=== PATIENT | female | born 1975 | race Caucasian/White ===

== ENCOUNTER 2016-11-23 19:07 | Emergency (ER) | payer BC, OTHER ==
[~2016-11-23] VITALS: Ht 157.5 cm; Wt 62.6 kg
[2016-11-23] MEDS ORDERED: ONDANSETRON 4 MG/2 ML VIAL IV ONE (19:30)
[2016-11-23] MEDS ORDERED: IV NORMAL SALINE 1000 ML BAG IV ONE (19:30)
[2016-11-23 19:43] LABS: BASOPHILS # (AUTO) 0.1 K/uL (0.0-8.0); BASOPHILS % (AUTO) 0.9 % (0.0-2.0); EOSINOPHILS # (AUTO) 0.1 K/uL (0.0-0.7); HEMATOCRIT 41.7 % (37-47); HEMOGLOBIN 14.2 G/DL (12.0-16.0); LYMPHOCYTES # (AUTO) 1.9 K/UL (0.8-4.8); LYMPHOCYTES % (AUTO) 24.2 % (20.5-51.5); MEAN CORPUSCULAR HEMOGLOBIN 30.6 UUG (27.0-31.0); MEAN CORPUSCULAR HGB CONC 34 g/dL (32.0-37.0); MEAN CORPUSCULAR VOLUME 90.2 FL (81.0-99.0); MONOCYTES # (AUTO) 0.5 K/UL (0.1-1.30); MONOCYTES % (AUTO) 6.4 % (0.0-11.0); NEUTROPHILS # (AUTO) 5.2 K/UL (1.8-8.9); NEUTROPHILS % (AUTO) 67.5 % (38.5-71.5); PLATELET COUNT (AUTO) 172 K/UL (150-450); RED BLOOD CELL COUNT(AUTO) 4.63 MIL/UL (4.2-5.4); WHITE BLOOD COUNT (AUTO) 7.8 K/UL (4.0-11.2)
[2016-11-23] MEDS ORDERED: ONDANSETRON 4 MG/2 ML VIAL ONE (19:48)
[2016-11-23 19:51] LABS: CREATININE 0.6 mg/dL (0.6-1.3); POTASSIUM 3.9 mmol/L (3.5-5.1)
[2016-11-23 19:57] LABS: BILIRUBIN,DIRECT 0.1 mg/dL (0.0-0.2); BILIRUBIN,TOTAL 0.3 mg/dL (0.2-1.0); TOTAL PROTEIN, SERUM 7.7 g/dL (6.4-8.2)
--- NOTE | 2016-11-23 20:30 | NUR ---
Patient discharged to home in stable conditon. Written and verbal after care instructions given. Patient verbalizes understanding of instructions.
[2016-11-23 20:35] VITALS: BP 120/80
== END 2016-11-23 20:35 | disposition home or self-care (01) ==
LOC: ER 19:07
DX: R19.7 Diarrhea, unspecified (principal); R11.2 Nausea with vomiting, unspecified; M79.606 Pain in leg, unspecified
CPT/HCPCS: 36415; 83690; 84703; 85025; A4663; J2405; J7030

== ENCOUNTER 2017-07-03 10:53 | Emergency (ER) | payer BC, OTHER ==
[~2017-07-03] VITALS: Ht 157.5 cm; Wt 63.5 kg
--- NOTE | 2017-07-03 12:58 | NUR ---
PATIENT WAS SEEN BY MD. ANTOINE AND FOLLW UP INSTRUCTIONS GIVEN AND EXPLAINED TO PATIENT WHO STATES HE UNDERSTANDS ALL INSTRUCTIONS.
== END 2017-07-03 13:00 | disposition home or self-care (01) ==
LOC: ER 10:53
DX: S93.602A Unspecified sprain of left foot, initial encounter (principal); X58.XXXA Exposure to other specified factors, initial encounter; Y93.89 Activity, other specified; Y92.89 Other specified places as the place of occurrence of the external cause; Y99.8 Other external cause status
CPT/HCPCS: 73620; A4663

== ENCOUNTER 2018-02-22 07:38 | Inpatient (IN) | payer BC, OTHER ==
[~2018-02-22] VITALS: Ht 157.5 cm; Wt 63.2 kg
[2018-02-22] MEDS ORDERED: PANT40TA2 PO (07:45)
--- NOTE | 2018-02-22 08:44 | NUR ---
OPAL NOVOA TALKING TO DR. CAMILO FOR GI CONSULT
[2018-02-22 09:14] LABS: BASOPHILS # (AUTO) 0.1 K/uL (0.0-8.0); EOSINOPHILS % (AUTO) 0.4 % (0.0-7.0); HEMATOCRIT 41.7 % (31.2-41.9); HEMOGLOBIN 14.3 g/dL (10.9-14.3); LYMPHOCYTES # (AUTO) 1.3 K/uL (20.0-40.0); LYMPHOCYTES % (AUTO) 20.3 % (20.5-51.5); MEAN CORPUSCULAR HEMOGLOBIN 32.1 uug (24.7-32.8); MEAN CORPUSCULAR HGB CONC 34 g/dL (32.3-35.6); MEAN CORPUSCULAR VOLUME 93.7 fL (75.5-95.3); MONOCYTES # (AUTO) 0.6 K/uL (2.0-10.0); MONOCYTES % (AUTO) 8.9 % (0.0-11.0); NEUTROPHILS # (AUTO) 4.4 K/uL (1.8-8.9); NEUTROPHILS % (AUTO) 69.4 % (38.5-71.5); PLATELET COUNT (AUTO) 203 K/uL (179-408); RED BLOOD CELL COUNT(AUTO) 4.45 MIL/uL (3.63-4.92); WHITE BLOOD COUNT (AUTO) 6.3 K/uL (3.8-11.8)
[2018-02-22 09:19] LABS: CREATININE 0.7 mg/dL (0.6-1.3); POTASSIUM 3.6 mmol/L (3.5-5.1)
[2018-02-22 09:25] LABS: BILIRUBIN,DIRECT 0.1 mg/dL (0.0-0.2); BILIRUBIN,TOTAL 0.4 mg/dL (0.2-1.0); TOTAL PROTEIN, SERUM 7.7 g/dL (6.4-8.2)
[2018-02-22] MEDS ORDERED: IV NORMAL SALINE 1000 ML BAG IV ONE (09:45)
--- NOTE | 2018-02-22 10:51 | NUR ---
dr. rios at bedside.
--- NOTE | 2018-02-22 11:09 | NUR ---
pt transfered to floor in stable condition.
--- NOTE | 2018-02-22 11:10 | NUR ---
RECEIVED PATIENT FOR ADMISSION 42 YEARS OLD BY W/CHAIR WITH DX OF ESOPHAGEAL FOREIGN BODY PLACED INTO BED FIXED AND MADE COMFORTABLE PATIENT ORIENTED TO ROOM AND FACILITY PROTOCOL HAS A HEPLOCK IN HER LEFT AC PATENT FLUSHED PER PROTOCOL.PATIENT IS NPO INSTRUCTED PER THE ED NURSE DR DIAZ STATED TO KEEP PATIENT NPO BECAUSE HE IS PLANNING TO DO EGD ON THIS PATIENT TODAY
[2018-02-22] MEDS ORDERED: IV NS 1000 ML 1,000 ML IV PRN (11:31)
[2018-02-22] MEDS ORDERED: Z GUARD REMEDY PASTE 57 GM TUBE TOP PRN (11:45)
[2018-02-22] MEDS ORDERED: ZOLPIDEM 5 MG TABLET PO PRN (11:45)
[2018-02-22] MEDS ORDERED: ONDANSETRON 4 MG/2 ML VIAL IV PRN (11:45)
[2018-02-22] MEDS ORDERED: PANTOPRAZOLE SODIUM 40 MG VIAL IV SCH (11:45)
[2018-02-22] MEDS ORDERED: ACETAMINOPHEN 325 MG TABLET PO PRN (11:45)
[2018-02-22 12:03] VITALS: BP 120/75
[2018-02-22 12:36] LABS: *BILIRUBIN,URIN NEGATIVE (NEGATIVE); *BLOOD, URINE Trace-intact (NEGATIVE); *CLARITY,URINE CLEAR (CLEAR); *COLOR,URINE YELLOW (YELLOW); *KETONES,URINE 2+ (NEGATIVE); *PROTEIN,URINE NEGATIVE (NEGATIVE); *UROBILINOGEN,URINE 0.2 E.U./dl (NORMAL); LEUKOCYTE ESTERASE ,URINE NEGATIVE (NEGATIVE); NITRITE, URINE NEGATIVE (NEGATIVE); PH,URINE 8.5 (5.0-8.0); UGLUCOSE NEGATIVE (NEGATIVE)
--- NOTE | 2018-02-22 12:45 | NUR ---
PER GI LAB PATIENT IS SCHEDULED FOR EGD TODAY HYPERTRICHOLOGIST ABOUT 1430 PATIENT AND HER NOTIFIED.
[2018-02-22 12:52] LABS: WBC,URINE 0-3 /HPF (0-3)
[2018-02-22 12:53] LABS: BACTERIA,URINE NONE SEEN /HPF (NONE SEEN)
[2018-02-22 12:54] LABS: MUCUS,URINE FEW /LPF (0-FEW); SQUAMOUS EPITHELIAL CELL,UR MODERATE /HPF (NONE SEEN); YEAST,URINE FEW /HPF (NONE SEEN)
--- NOTE | 2018-02-22 14:45 | NUR ---
PATIENT PICKED UP BY BED TO THE GI LAB FOR ENDOSCOPY ORDERED AWAKE ALERT ORIENTED VERBALLY RESPONSIVE DENIES PAIN OR DISCOMFORTS AT THIS TIME REMAIN NPO ORDERED.
[2018-02-22 15:00] VITALS: BP 131/88
--- NOTE | 2018-02-22 17:30 | NUR ---
PATIENT RETURNED FROM GI LAB BY BED AWAKE ALERT ORIENTED HAPPY THAT HER ENDOSCOPY WAS OKAY ABLE TO DRINK LIQUIDS STATED THAT SHE DOES NOT FEEL THE TIGHTNESS ANYMORE ABLE TO DRINK AND KEEP LIQUIDS EAGER TO GO HOME TODAY
--- NOTE | 2018-02-22 18:00 | NUR ---
DR AVERY HERE AND SEEN PATIENT WITH ORDER TO DISCHARGE HER HOME TODAY AND NOTED
[2018-02-22] MEDS ORDERED: LIDOCAINE HCL 2% 5 ML JELLY MC ONE (18:19)
[2018-02-22] MEDS ORDERED: IRR STERIL WATER FOR IRR 1000 ML BOTTLE IR ONE (18:19)
[2018-02-22] MEDS ORDERED: IV LACTATED RINGERS SOLUTION 1,000 ML BAG IV ONE (18:19)
[2018-02-22] MEDS ORDERED: PROPOFOL 200 MG/20 ML BOTTLE IV ONE (18:19)
--- NOTE | 2018-02-22 18:20 | NUR ---
PATIENT DISCHARGED PICKED UP BY HER KOURTNEY IN SATISFACTORY CONDITION WITH DISCHARGE INSTRUCTIONS AND PATIENT INSTRUCTED TO ADVANCE HER DIET FROM CLEAR LIQUIDS TO REGULAR TOLERATED AND TO CALL [facility] TO FOLLOW UP ON THE BIOPSY RESULTS AND SHE EXPRESSED UNDERSTANDING.
== END 2018-02-22 18:20 | disposition home or self-care (01) | DRG 392 ==
LOC: ER 07:38 → MED 10:54
PROVIDERS: ADMIT Internal Medicine; ATTEND Internal Medicine
PROC: 0DB58ZX Excision of Esophagus, Via Natural or Artificial Opening Endoscopic, Diagnostic (ICD-10-PCS; principal; 2018-02-22 16:00)
PROC: 0DB68ZX Excision of Stomach, Via Natural or Artificial Opening Endoscopic, Diagnostic (ICD-10-PCS; principal; 2018-02-22 16:00)
DX: K20.9 Esophagitis, unspecified (principal); R13.10 Dysphagia, unspecified; Z80.0 Family history of malignant neoplasm of digestive organs; F41.9 Anxiety disorder, unspecified; Z87.891 Personal history of nicotine dependence
CPT/HCPCS: 36415; 70030-TC; 85025; 85730; 88342; 93005; A4217; A4663; C9113; G0378; J3490; J7030; J7120

== ENCOUNTER 2018-02-26 13:25 | Outpatient (CLI) | payer BC, OTHER ==
[~2018-02-26 13:25] MED LIST: PANT40TA2 PO
[2018-02-26 13:48] LABS: *OCCULT BLOOD STOOL NEGATIVE (NEGATIVE)
[2018-02-26 13:55] LABS: BASOPHILS # (AUTO) 0.1 K/uL (0.0-8.0); EOSINOPHILS % (AUTO) 0.7 % (0.0-7.0); HEMATOCRIT 39.8 % (31.2-41.9); HEMOGLOBIN 13.5 g/dL (10.9-14.3); LYMPHOCYTES # (AUTO) 1.1 K/uL (20.0-40.0); LYMPHOCYTES % (AUTO) 20.3 % (20.5-51.5); MEAN CORPUSCULAR HEMOGLOBIN 31.9 uug (24.7-32.8); MEAN CORPUSCULAR HGB CONC 34 g/dL (32.3-35.6); MONOCYTES # (AUTO) 0.5 K/uL (2.0-10.0); MONOCYTES % (AUTO) 9.2 % (0.0-11.0); NEUTROPHILS # (AUTO) 3.8 K/uL (1.8-8.9); NEUTROPHILS % (AUTO) 68.8 % (38.5-71.5); PLATELET COUNT (AUTO) 176 K/uL (179-408); RED BLOOD CELL COUNT(AUTO) 4.23 MIL/uL (3.63-4.92); WHITE BLOOD COUNT (AUTO) 5.5 K/uL (3.8-11.8)
[2018-02-27 14:09] LABS: *OCCULT BLOOD STOOL NEGATIVE (NEGATIVE)
== END 2018-02-26 23:59 | disposition home or self-care (01) ==
LOC: LAB 13:25
PROVIDERS: ATTEND Internal Medicine
DX: K92.1 Melena (principal); B15.9 Hepatitis A without hepatic coma
CPT/HCPCS: 36415; 85025

== ENCOUNTER 2018-06-27 09:47 | Emergency (ER) | payer BC, OTHER ==
[~2018-06-27] VITALS: Ht 157.5 cm; Wt 63.5 kg
[2018-06-27] MEDS ORDERED: PANTOPRAZOLE SODIUM 40 MG VIAL IV ONE (10:15)
[2018-06-27] MEDS ORDERED: IV NORMAL SALINE 1000 ML BAG IV ONE (10:15)
[2018-06-27] MEDS ORDERED: ONDANSETRON 4 MG/2 ML VIAL IV ONE (10:15)
[2018-06-27] MEDS ORDERED: PANTOPRAZOLE SODIUM 40 MG VIAL ONE (10:24)
[2018-06-27] MEDS ORDERED: ONDANSETRON 4 MG/2 ML VIAL ONE (10:24)
[2018-06-27 10:25] LABS: BASOPHILS # (AUTO) 0.1 K/uL (0.0-8.0); BASOPHILS % (AUTO) 1.4 % (0.0-2.0); EOSINOPHILS % (AUTO) 0.9 % (0.0-7.0); HEMATOCRIT 40.4 % (31.2-41.9); HEMOGLOBIN 13.8 g/dL (10.9-14.3); LYMPHOCYTES # (AUTO) 1.3 K/uL (20.0-40.0); LYMPHOCYTES % (AUTO) 24.2 % (20.5-51.5); MEAN CORPUSCULAR HEMOGLOBIN 30.8 uug (24.7-32.8); MEAN CORPUSCULAR HGB CONC 34 g/dL (32.3-35.6); MEAN CORPUSCULAR VOLUME 90.4 fL (75.5-95.3); MONOCYTES # (AUTO) 0.3 K/uL (2.0-10.0); MONOCYTES % (AUTO) 6.3 % (0.0-11.0); NEUTROPHILS # (AUTO) 3.5 K/uL (1.8-8.9); NEUTROPHILS % (AUTO) 67.2 % (38.5-71.5); PLATELET COUNT (AUTO) 223 K/uL (179-408); RED BLOOD CELL COUNT(AUTO) 4.47 MIL/uL (3.63-4.92); WHITE BLOOD COUNT (AUTO) 5.2 K/uL (3.8-11.8)
[2018-06-27 10:36] LABS: ALANINE AMINOTRANSFERASE 41 U/L (14-59); ALKALINE PHOSPHATASE 63 U/L (50-136); ASPARTATE AMINOTRANSFERASE 28 U/L (15-37); BILIRUBIN,DIRECT 0.1 mg/dL (0.0-0.2); BILIRUBIN,TOTAL 0.2 mg/dL (0.2-1.0); CARBON DIOXIDE 24 mmol/L (21-32); CHLORIDE 104 mmol/L (98-107); CREATININE 0.6 mg/dL (0.6-1.3); GLUCOSE 113 mg/dL (74-106); LIPASE 95 U/L (73-393); POTASSIUM 4.1 mmol/L (3.5-5.1); TOTAL PROTEIN, SERUM 7.6 g/dL (6.4-8.2); UREA NITROGEN, BLOOD 15 mg/dL (7-18)
--- NOTE | 2018-06-27 10:36 | NUR ---
PT IS IN ROOM #2A. DR ENAMORADO EVALUATED THE PT.
[2018-06-27 11:54] VITALS: BP 132/77
--- NOTE | 2018-06-27 11:55 | NUR ---
PT WAS D/C TO HOME. D/C INSTRUCTIONS GIVEN TO THE PT.
== END 2018-06-27 11:56 | disposition home or self-care (01) ==
LOC: ER 09:47
DX: A08.4 Viral intestinal infection, unspecified (principal); Z79.899 Other long term (current) drug therapy
CPT/HCPCS: 36415; 80048; 80076; 83690; 84702; 85025; 96361; 96374; 96375; 99283; C9113; J2405; A4663; J7030